=== PATIENT | male | born 1985 | race Caucasian/White ===

== ENCOUNTER 2019-03-30 09:44 | Emergency (ER) | payer MEDICAID, OTHER ==
[~2019-03-30] VITALS: Ht 195.6 cm; Wt 134.6 kg
[2019-03-30] MEDS ORDERED: ACET1TAB16 (09:53)
[2019-03-30] MEDS ORDERED: NAPR-885 (09:53)
--- NOTE | 2019-03-30 11:57 | REP ---
RIGHT UPPER QUADRANT ULTRASOUND: Real-time sonographic evaluation of the right upper quadrant performed. Gallbladder is mildly distended and contains stones and sludge. There is mild diffuse gallbladder wall thickening at 4 mm. There is no pericholecystic fluid. There is no intrahepatic or extrahepatic biliary dilatation, common bile duct measuring 4 mm. Liver demonstrates increased echotexture diffusely suggesting diffuse fibrofatty infiltration. No gross liver mass is seen. The pancreas could not be visualized due to overlying bowel gas. The right kidney demonstrates no hydronephrosis with normal size 12.1 cm in length. IMPRESSION: Moderately distended gallbladder containing stones and sludge. Mild diffuse gallbladder wall thickening. No free fluid or biliary dilatation. Electronically Signed by Clinton York MD 03/30/2019 04:35 P
[2019-03-30 12:04] LABS: BASO % 0.1 % (0.0-1.0); EOS # 0.1 10^3/uL (0.0-0.50); EOS % 1.4 % (0.0-3.0); LYMPH # 1.8 10^3/uL (1.5-4.5); LYMPH % 25.1 % (24.0-44.0); MEAN CORPUSCULAR HEMOGLOBIN 30.7 pg (27.0-33.0); MEAN CORPUSCULAR HGB CONC 34.1 g/dl (32.0-36.5); MEAN CORPUSCULAR VOLUME 90.2 fl (80.0-96.0); MONO # 0.4 10^3/uL (0.0-0.8); NEUTROPHILS # 4.7 10^3/uL (1.8-7.7); NEUTROPHILS % 67.3 % (36.0-66.0); PLATELET COUNT, AUTOMATED 299 10^3/uL (150-450); RED BLOOD COUNT 4.88 10^6/uL (4.30-6.10)
[2019-03-30] MEDS ORDERED: ONDANSETRON 4MG/2ML VIAL (J2405) IV ONE (12:15)
[2019-03-30] MEDS ORDERED: NS 1,000 ML IV ONE (12:15)
[2019-03-30] MEDS ORDERED: KETOROLAC 30 MG/ML VIAL (J1885) IV ONE (12:30)
[2019-03-30 12:36] LABS: ALBUMIN 3.8 GM/DL (3.2-5.2); ALT/SGPT 31 U/L (12-78); BILIRUBIN,DIRECT 0.1 MG/DL (0.0-0.2); BILIRUBIN,TOTAL 0.3 MG/DL (0.2-1.0); BLOOD UREA NITROGEN 11 MG/DL (7-18); CALCIUM LEVEL 9.2 MG/DL (8.5-10.1); CARBON DIOXIDE LEVEL 26 MEQ/L (21-32); CHLORIDE LEVEL 107 MEQ/L (98-107); CREATININE FOR GFR 0.94 MG/DL (0.70-1.30); GLOMERULAR FILTRATION RATE > 60.0 (>60); GLUCOSE, FASTING 90 MG/DL (70-100); LIPASE 71 U/L (73-393); POTASSIUM SERUM 4.2 MEQ/L (3.5-5.1); SODIUM LEVEL 140 MEQ/L (136-145); TOTAL PROTEIN 7.7 GM/DL (6.4-8.2)
[2019-03-30 13:01] VITALS: BP 115/58
[2019-03-30] MEDS ORDERED: NORC1TAB7 PO (13:30)
[2019-03-30] MEDS ORDERED: AUGM875T28 PO (13:30)
[2019-03-30] MEDS ORDERED: ZOFR4TAB16 PO (13:30)
[2019-03-30] MEDS ORDERED: AUGMENTIN 875 MG TAB PO ONE (13:45)
--- NOTE | 2019-04-01 08:04 | ED PDOC ---
Post-Departure Follow-Up dr perez and aniya diaz faxed formal report of us for fu Kristina Herbert MD Apr 01, 2019 08:04
== END 2019-03-30 13:52 | disposition home or self-care (01) ==
LOC: M ED 09:44
DX: K80.20 Calculus of gallbladder without cholecystitis without obstruction (principal); R11.0 Nausea; F17.200 Nicotine dependence, unspecified, uncomplicated
CPT/HCPCS: 36415; 76705; 80047; 80048; 80076; 83690; 85025; 96374; 96375; 99284; J1885; J2405

== ENCOUNTER 2019-04-03 21:33 | Inpatient (IN) | payer OTHER ==
[~2019-04-03] VITALS: Ht 195.6 cm; Wt 135.0 kg
[~2019-04-03 21:33] MED LIST: ACET1TAB16; AUGM875T28 PO; NAPR-885; NORC1TAB7 PO; ZOFR4TAB16 PO
[2019-04-03] MEDS ORDERED: ONDANSETRON 4MG/2ML VIAL (J2405) IV ONE (22:45)
[2019-04-03] MEDS ORDERED: KETOROLAC 30 MG/ML VIAL (J1885) IV ONE (22:45)
[2019-04-03] MEDS ORDERED: NS 1,000 ML IV ONE (22:45)
[2019-04-03] MEDS ORDERED: MORPHINE 2 MG/ML 1ML SYRINGE (J2270) IV ONE (23:00)
[2019-04-04 00:08] LABS: ALBUMIN 3.8 GM/DL (3.2-5.2); ALT/SGPT 619 U/L (12-78); AMYLASE 31 U/L (25-115); BILIRUBIN,DIRECT 2.4 MG/DL (0.0-0.2); BILIRUBIN,TOTAL 3.1 MG/DL (0.2-1.0); BLOOD UREA NITROGEN 9 MG/DL (7-18); CARBON DIOXIDE LEVEL 28 MEQ/L (21-32); CHLORIDE LEVEL 106 MEQ/L (98-107); CREATININE FOR GFR 0.99 MG/DL (0.70-1.30); GLOMERULAR FILTRATION RATE > 60.0 (>60); GLUCOSE, FASTING 98 MG/DL (70-100); LIPASE 98 U/L (73-393); POTASSIUM SERUM 4.1 MEQ/L (3.5-5.1); SODIUM LEVEL 140 MEQ/L (136-145); TOTAL PROTEIN 7.7 GM/DL (6.4-8.2)
[2019-04-04 00:13] LABS: BASO % 0.3 % (0.0-1.0); EOS # 0.1 10^3/uL (0.0-0.50); EOS % 1.7 % (0.0-3.0); HEMATOCRIT 43.3 % (42.0-52.0); LYMPH # 1.7 10^3/uL (1.5-4.5); LYMPH % 24.1 % (24.0-44.0); MEAN CORPUSCULAR HEMOGLOBIN 31.1 pg (27.0-33.0); MEAN CORPUSCULAR HGB CONC 34.6 g/dl (32.0-36.5); MEAN CORPUSCULAR VOLUME 89.8 fl (80.0-96.0); MONO # 0.5 10^3/uL (0.0-0.8); MONO % 7.7 % (0.0-5.0); NEUTROPHILS # 4.5 10^3/uL (1.8-7.7); NEUTROPHILS % 65.9 % (36.0-66.0); PLATELET COUNT, AUTOMATED 285 10^3/uL (150-450); RED BLOOD COUNT 4.82 10^6/uL (4.30-6.10); WHITE BLOOD COUNT 6.9 10^3/uL (4.0-10.0)
--- NOTE | 2019-04-04 03:21 | REPVR ---
EXAM: US Abdomen Limited, Right Upper Quadrant EXAM DATE/TIME: 04/04/2019 1:02 AM CLINICAL HISTORY: 33 years old, male; Abdominal pain; Acute; Additional info: Ruq abd pain, elevated lfts TECHNIQUE: Imaging protocol: Real-time ultrasound of the abdomen with image documentation. Examination was focused on the right upper quadrant. COMPARISON: GALLBLADDER US 03/30/2019 11:19 AM FINDINGS: Liver: The liver is increased in echogenicity, most commonly due to fatty infiltration, but other chronic liver diseases may have a similar appearance. Evaluation of the liver is limited. Gallbladder: Multiple echogenic shadowing gallstones are identified. Gallbladder wall thickening is again visualized, which can be associated with acute cholecystitis. Common bile duct: The common bile duct measures 7-8 mm, which is borderline dilated. Pancreas: Not visualized due to bowel gas, according to the technologist. No images available. Right kidney: The right kidney measures 13.5 x 6.1 x 6.0 cm. No hydronephrosis of the right kidney. Evaluation of the right kidney is limited. IMPRESSION: 1. The liver is increased in echogenicity, most commonly due to fatty infiltration, but other chronic liver diseases may have a similar appearance. 2. Multiple echogenic shadowing gallstones are identified. Gallbladder wall thickening is again visualized, which can be associated with acute cholecystitis. Clinical correlation is recommended. 3. The common bile duct measures 7-8 mm, which is borderline dilated. Correlation with serum bilirubin and possible MRCP are recommended. Electronically signed by: Cain Ceballos On 04/04/2019 03:21:32 AM
[2019-04-04] MEDS ORDERED: AUGM875T28 PO (03:29)
[2019-04-04] MEDS ORDERED: ONDA4TAB5 PO (03:29)
[2019-04-04] MEDS ORDERED: NORCO, ANEXSIA 5/325MG TABLET (HYDROcodone/ACETAMINOPHEN) PO PRN (03:30)
[2019-04-04] MEDS ORDERED: MORPHINE 4 MG/ML 1ML VIAL/SYRINGE (J2270) IV PRN (03:30)
[2019-04-04] MEDS: PIPERACILLIN/TAZOBACTAM SOD 3.375 GM in D5W MINI-BAG PLUS 50 ML IV SCH ×4 (04:07→22:32)
[2019-04-04] MEDS: NS 1,000 ML IV SCH ×3 (04:07→15:47)
[2019-04-04 08:11] LABS: HEMATOCRIT 39.8 % (42.0-52.0); HEMOGLOBIN 13.7 g/dl (13.5-17.5); MEAN CORPUSCULAR HEMOGLOBIN 31.6 pg (27.0-33.0); MEAN CORPUSCULAR HGB CONC 34.4 g/dl (32.0-36.5); MEAN CORPUSCULAR VOLUME 91.7 fl (80.0-96.0); PLATELET COUNT, AUTOMATED 221 10^3/uL (150-450); RED BLOOD COUNT 4.34 10^6/uL (4.30-6.10); WHITE BLOOD COUNT 5.8 10^3/uL (4.0-10.0)
[2019-04-04 08:36] LABS: ALBUMIN 3.3 GM/DL (3.2-5.2); ALT/SGPT 482 U/L (12-78); BILIRUBIN,TOTAL 1.4 MG/DL (0.2-1.0); BLOOD UREA NITROGEN 8 MG/DL (7-18); CALCIUM LEVEL 8.7 MG/DL (8.5-10.1); CARBON DIOXIDE LEVEL 24 MEQ/L (21-32); CHLORIDE LEVEL 109 MEQ/L (98-107); CREATININE FOR GFR 0.89 MG/DL (0.70-1.30); GLOMERULAR FILTRATION RATE > 60.0 (>60); GLUCOSE, FASTING 96 MG/DL (70-100); LIPASE 109 U/L (73-393); POTASSIUM SERUM 3.7 MEQ/L (3.5-5.1); SODIUM LEVEL 139 MEQ/L (136-145); TOTAL PROTEIN 6.9 GM/DL (6.4-8.2)
[2019-04-04 14:00] VITALS: BP 132/91
--- NOTE | 2019-04-04 14:41 | REP ---
MRCP: MRCP is accomplished utilizing multiple heavily T2-weighted sequences in the axial and coronal planes. MIP reconstruction images are performed. Gallbladder demonstrates multiple innumerable calculi. The vast majority of these calculi are subcentimeter in size. There is diffuse gallbladder wall thickening. I do not see surrounding free fluid. There is mild intrahepatic biliary dilatation. Common hepatic and common bile duct are mildly dilated up to 8 mm. There is a 9 mm oval calculus in the proximal common bile duct. The more distal common bile duct is not dilated. There is no evidence of pancreatic duct dilatation. Subcentimeter hyperintense nodule in the upper pole of the left kidney on T2-weighted images probably represents a subcentimeter cyst. IMPRESSION: Multiple gallstones in the gallbladder. Diffuse gallbladder wall thickening without surrounding free fluid. There is mild intrahepatic biliary dilatation and mild dilatation of the common hepatic and common bile ducts. There is an oval calculus in the proximal common bile duct measuring 9 mm in diameter. Electronically Signed by Clinton York MD 04/06/2019 08:37 A
--- NOTE | 2019-04-04 21:13 | HPE ---
DATE OF ADMISSION: 04/04/2019 CHIEF COMPLAINT: Epigastric, right upper quadrant pain times 4 hours prior to admission. BRIEF HISTORY OF PRESENT ILLNESS: The patient is a 33-year-old male who presented to the emergency room approximately 4 days prior to admission and was diagnosed with symptomatic gallstones/biliary colic. At that time, he did have some mild right upper quadrant pain and was discharged to home and ever since then he still has had some intermittent pain and discomfort but developed acute onset of abdominal pain after eating some fish and a nonfatty meal. It caused pain starting from the epigastric area all across the upper abdomen and the right upper quadrant, presented to the emergency room with this severe pain and discomfort and underwent evaluation with laboratory function tests revealing a normal white count, however an elevated bilirubin of 3.1, AST of 373, ALT of 619, alkaline phosphatase of 326. Lipase was normal. The patient has been complaining of some bilirubinuria without acholic stools. PAST MEDICAL HISTORY: Significant for questionable silent heart attack within the last year, is seen by cardiology. History of gallstones. MEDICATIONS: Since last visit to the emergency room, have been Zofran and Augmentin. The patient has not had previous surgical history and no other ongoing medications. PHYSICAL EXAM: The patient is an obese white male who looks stated age. HEENT is unremarkable. Neck: Supple without adenopathy. Lungs: Clear to auscultation without crackles, wheezes or rhonchi. Heart is regular without murmur. Abdomen is soft. At this time, about 4 hours after admission, he states his abdominal pain, tenderness has resolved, without guarding, without rebound, without peritoneal signs. No significant pain with deep inspiration. No evidence of a positive Campuzano's. Extremities: Warm, well-perfused. IMPRESSION AND PLAN: The patient has elevated liver function tests. I have ordered followup liver function tests this morning. If they are of decreased, it may be that he has passed the stone and clinically he is looking as though he has passed a stone. And the question at this time is whether to proceed with an magnetic resonance cholangiopancreatography (MRCP) or to get some followup labs over the ensuing 12-24 hours. After discussion with the patient, we will proceed with an MRCP today and our next step will be dependent on those findings, such as possible endoscopic retrograde cholangiopancreatography (ERCP) or possible progression of his diet, discharged to home and outpatient laparoscopic cholecystectomy. The patient understands our current plan and would like to proceed with operative intervention as soon as possible, and if we can perform this prior to his discharge, he would prefer that option.
[2019-04-04 22:00] VITALS: BP 132/76
[2019-04-05] VITALS (7 sets, daily range): BP systolic 118–139; BP diastolic 59–87
[2019-04-05] MEDS: PIPERACILLIN/TAZOBACTAM SOD 3.375 GM in D5W MINI-BAG PLUS 50 ML IV SCH ×4 (05:58→22:22)
[2019-04-05] MEDS: NS 1,000 ML IV SCH ×4 (05:58→22:22)
[2019-04-05] MEDS ORDERED: ISOVUE-300 61% 50ML VIAL (Q9967) As Ordered ONE ×3 (17:44→19:04)
[2019-04-05] MEDS ORDERED: dexameTHASONE 4 MG/ML 1ML VIAL (J1100) As Ordered ONE (18:16)
[2019-04-05] MEDS ORDERED: fentaNYL 100 MCG/2 ML INJECTION (J3010) As Ordered ONE ×2 (18:16→18:29)
[2019-04-05] MEDS ORDERED: ONDANSETRON 4MG/2ML VIAL (J2405) As Ordered ONE (18:16)
[2019-04-05] MEDS ORDERED: MIDAZOLAM INJ 2 MG/2 ML VIAL (J2250) As Ordered ONE (18:16)
[2019-04-05] MEDS ORDERED: LIDOCAINE 2% INJ 100 MG/5 ML SDV (FOR ANES.) As Ordered ONE (18:16)
[2019-04-05] MEDS ORDERED: PROPOFOL 200 MG/20 ML VIAL As Ordered ONE (18:16)
[2019-04-05] MEDS ORDERED: ROCURONIUM BROMIDE 50 MG/5 ML VIAL As Ordered ONE (18:16)
[2019-04-05] MEDS ORDERED: NEOSTIGMINE 10 MG/10 ML VIAL (J2710) As Ordered ONE (19:14)
[2019-04-05] MEDS ORDERED: GLYCOPYRROLATE INJ 0.2 MG/ML 2 ML VIAL As Ordered ONE (19:15)
--- NOTE | 2019-04-05 19:22 | ROOR ---
Patient Name: Ben Canada Procedure Date: 04/05/2019 5:45 PM Date of : 1985 Age: 33 Room: Main OR Gender: Male Note Status: Finalized Procedure: ERCP Indications: Abnormal MRCP, Evaluation and possible treatment of bile duct stone(s) Providers: Jasson ROSE MD Referring MD: 2. Inpatient 2. Inpatient Requesting Provider: Medicines: Monitored Anesthesia Care Complications: No immediate complications. Procedure: Pre-Anesthesia Assessment: - The heart rate, respiratory rate, oxygen saturations, blood pressure, adequacy of pulmonary ventilation, and response to care were monitored throughout the procedure. The Duodenoscope was introduced through the mouth, and advanced to the duodenum and used to inject contrast into the bile duct. The ERCP was accomplished without difficulty. The patient tolerated the procedure well. Findings: The database manager film was normal. The esophagus was successfully intubated under direct vision. The scope was advanced to a normal major papilla in the descending duodenum without detailed examination of the pharynx, larynx and associated structures, and upper GI tract. The upper GI tract was grossly normal. A straight Roadrunner wire was passed into the biliary tree. The bile duct was then deeply cannulated over the guidewire. Contrast was injected. I personally interpreted the bile duct images. Ductal flow of contrast was adequate. Image quality was adequate. Contrast extended to the entire biliary tree. Opacification of the entire biliary tree was successful. The maximum diameter of the ducts was 10 mm. The upper third of the main bile duct contained one stone, which was 10 mm in diameter. An 8 mm biliary sphincterotomy was made with a traction (standard) sphincterotome using ERBE electrocautery. There was no post-sphincterotomy bleeding. The biliary tree was swept with a 12 mm balloon starting at the bifurcation. Pus was swept from the duct. Sludge was swept from the duct. Lithotripsy with a basket-type device was successful. The biliary tree was swept with a 12 mm balloon starting at the bifurcation. Debris was swept from the duct. One stone was removed. No stones remained. Impression: - Choledocholithiasis was found. Complete removal was accomplished by biliary sphincterotomy, lithotripsy and balloon extraction. - A biliary sphincterotomy was performed. - The biliary tree was swept and pus and sludge and debris were found. - Lithotripsy was successful. - The biliary tree was swept and debris was found. Recommendation: - Refer to a surgeon at the next available appointment. - Surgical consultation for consideration of cholecystectomy at the next available appointment. Jasson Rose MD Jasson ROSE MD 04/05/2019 7:22:06 PM Electronically signed by Jasson ROSE MD Number of Addenda: 0 Note Initiated On: 04/05/2019 5:45 PM Estimated Blood Loss: Estimated blood loss: none.
[2019-04-05] MEDS ORDERED: HYDROMORPHONE HCL 0.5 MG/ 0.5 ML SYRINGE (J1170 PER 1) IV PRN (19:45)
[2019-04-05] MEDS ORDERED: LR 1,000 ML IV SCH (19:45)
[2019-04-05] MEDS ORDERED: fentaNYL 100 MCG/2 ML INJECTION (J3010) IV PRN (19:45)
[2019-04-05] MEDS ORDERED: PERCOCET 5MG/325MG TAB PO PRN (19:45)
[2019-04-05] MEDS ORDERED: ONDANSETRON 4MG/2ML VIAL (J2405) IV PRN (19:45)
--- NOTE | 2019-04-05 20:23 | REP ---
C-ARM VIEWS DURING ERCP: Multiple C-Arm views are performed during ERCP exam. Common bile duct is catheterized and contrast is injected. There is a filling defect representing a stone in the proximal common bile duct. Catheter manipulation is performed. A filling defect is not visualized on later images. Contrast is seen in the gallbladder with multiple filling defects representing gallstones. 16 minutes 43 seconds fluoroscopy time utilized. Electronically Signed by Clinton York MD 04/10/2019 01:38 P
[2019-04-06] VITALS: BP 120/58
[2019-04-06 01:00] VITALS: BP 122/53
[2019-04-06 04:00] VITALS: BP 114/63
[2019-04-06] MEDS: PIPERACILLIN/TAZOBACTAM SOD 3.375 GM in D5W MINI-BAG PLUS 50 ML IV SCH ×2 (04:15→10:07)
[2019-04-06 08:00] VITALS: BP 134/68
--- NOTE | 2019-04-06 10:34 | CR ---
DATE OF CONSULTATION: 04/04/2019 REQUESTING PHYSICIAN: Dr. Echevarria. REASON FOR CONSULTATION: Choledocholithiasis. HISTORY OF PRESENT ILLNESS: Mr. Canada is a 33-year-old male with a recent history of intermittent bouts of epigastric pain, nausea and vomiting. He was thought to have biliary colic at one of his emergency room (ER) visits in [place] last month. He was also noted to have an abnormal EKG at that time, which has been evaluated, but the results are not forthcoming at this time. Regardless, the patient was scheduled to have a cholecystectomy with a local surgeon; however over the past 2-3 days had significant increase in his abdominal pain, recurrent episodes of nausea, vomiting. His urine has turned dark and he presented to [facility] ER for further evaluation. He was found to have on ultrasound a gallbladder full of stones and a dilated common bile duct. His liver enzymes were noted to be cholestatic. He was admitted for further evaluation. His MRI this morning shows a common bile duct stone, 9 mm, obstructing his bile duct. There is moderate biliary ductal dilatation. There is a gallbladder full of stones. PAST MEDICAL HISTORY: 1. Abnormal EKG which was evaluated last month with Dr. Cano. Results are not forthcoming at this time. 2. Gallstones. SOCIAL HISTORY: Positive for tobacco. Negative for alcohol. FAMILY HISTORY: Negative for colorectal carcinoma, inflammatory bowel disease. REVIEW OF SYSTEMS: GENERAL: Negative for night sweats, fevers or chills. Positive for nausea. Positive for darkening of urine. PULMONARY: Negative for orthopnea or paroxysmal nocturnal dyspnea (PND). CARDIAC: Negative for chest pain, palpitations. Positive for an abnormal EKG. ABDOMEN: Soft, obese, mildly tender in right upper quadrant without any rebound tenderness. No masses are palpable. No ascites. EXTREMITIES: Negative for edema. RECTAL EXAMINATION: Deferred as per patient. LABORATORY WORK: Total bilirubin 3.1/1.4, direct bilirubin 2.4, AST 373/218, ALT 619/482, alkaline phosphatase 326/267. Amylase and lipase are normal at our institution. WBC 5.8, hemoglobin 13.7, hematocrit is 39, platelet count is 221. IMAGIN03/30/2019: Gallbladder ultrasound: Moderately distended gallbladder containing stones and sludge. Mild diffuse gallbladder wall thickening. No free fluid or biliary dilation. 04/04/2019: Ultrasound of gallbladder: 1. Liver is increased in echogenicity, most commonly due to fatty infiltration. 2. Multiple echogenic shattering gallstones identified in the gallbladder. The gallbladder wall is thickened, which should can be associated with acute cholecystitis. Clinical correlation is recommended. 3. Common bile duct measures 7-8 mm, which is borderline dilated. Correlation with serum bilirubin and possible magnetic resonance cholangiopancreatography (MRCP) is recommended. 04/04/2019: MRCP IMPRESSION: 1. Multiple gallstones in the gallbladder . 2. Diffuse gallbladder wall thickening with surrounding free fluid. 3. There is mild intrahepatic biliary dilatation and mild dilation of the common hepatic and common bile ducts. 4. There is an oval calculus in the proximal common bile duct measuring 9 mm in diameter. This examination is unreviewed. IMPRESSION: 1. Biliary colic/choledocholithiasis/obstructive jaundice. 2. Acute cholecystitis and cholelithiasis. 3. Reportedly abnormal EKG with recent evaluation in [place]. Testing was completed; however patient unaware of results. RECOMMENDATIONS 1. We will tentatively schedule him for endoscopic retrograde cholangiopancreatography (ERCP). 2. Continue antibiotic coverage for biliary tract. 3. I will ask cardiology to clear this patient in view of this nebulous history of "silent heart attack."
[2019-04-06 12:00] VITALS: BP 105/67
--- NOTE | 2019-04-06 12:52 | DSES ---
DATE OF ADMISSION: 04/04/2019 DATE OF DISCHARGE: 04/06/2019 CHIEF COMPLAINT: Symptomatic gallstones with common bile duct stone. ASSOCIATED DIAGNOSIS: None. MEDICATIONS: None. BRIEF HISTORY OF PRESENT ILLNESS: The patient is a 33-year-old gentleman who presented a few days ago to the emergency room with some symptomatic gallstones. He had normal liver function tests, but returned with increasing abdominal pain all across his upper abdomen. She stated that this much more problematic and painful than it was when he was seen 4 days earlier. HOSPITAL COURSE SUMMARY: The patient was admitted with the above diagnosis of symptomatic gallstones and elevated liver function tests and was found to have a common bile duct stone. He underwent ERCP and then was started on a clear liquid diet and advanced to a regular diet. During his hospitalization, his white count was normal. He has been afebrile and thus was not discharged on any antibiotic medication. He was discharged home with instructions to follow up next week in the office and for planned outpatient laparoscopic cholecystectomy. edited: 04/07/2019 0738 tkf MTDD
--- NOTE | 2019-04-06 13:01 | IPN ---
DATE: 04/05/2019 Patient overall is doing well. We did his followup labs yesterday and we did an MRI yesterday that showed a common bile duct stone. Overall, he has been having less pain and discomfort overnight but after discussing this with the uniform room attendant they plan on an endoscopic retrograde cholangiopancreatography (ERCP) today. He has been nothing by mouth after midnight. He did tolerate the clear liquids rather well. He is still has some pressure discomfort in the upper abdomen, but otherwise his abdominal exam is benign. He has been afebrile. IMPRESSION/PLAN: Patient has a common bile duct gallstone. At this point, we will and will keep him nothing by mouth, plan on the ERCP today, and then we will start him on clear liquids thereafter. We will see how he is doing after the ERCP, but depending on scheduling issues and timing we may proceed with a laparoscopic cholecystectomy here or as an outpatient.
== END 2019-04-06 13:10 | disposition home or self-care (01) ==
LOC: M ED 21:33 → M ED INP 04-04 03:26 → M MS5PR 04-04 04:55 → M PED 04-05 17:05
PROVIDERS: ADMIT Surgery; ATTEND Surgery
PROC: 0FC98ZZ Extirpation of Matter from Common Bile Duct, Via Natural or Artificial Opening Endoscopic (ICD-10-PCS; principal; 2019-04-05 16:00)
DX: K80.63 Calculus of gallbladder and bile duct with acute cholecystitis with obstruction (principal)

== ENCOUNTER 2019-05-06 13:50 | Observation (INO) | payer OTHER ==
[~2019-05-06] VITALS: Ht 195.6 cm; Wt 134.5 kg
[~2019-05-06 13:50] MED LIST changes: +ONDA4TAB5 PO
[2019-05-06 14:30] LABS: BASO % 0.1 % (0.0-1.0); EOS # 0.1 10^3/uL (0.0-0.50); EOS % 0.6 % (0.0-3.0); HEMATOCRIT 41.5 % (42.0-52.0); HEMOGLOBIN 14.8 g/dl (13.5-17.5); LYMPH # 1.1 10^3/uL (1.5-4.5); LYMPH % 13.7 % (24.0-44.0); MEAN CORPUSCULAR HEMOGLOBIN 32.6 pg (27.0-33.0); MEAN CORPUSCULAR HGB CONC 35.7 g/dl (32.0-36.5); MEAN CORPUSCULAR VOLUME 91.4 fl (80.0-96.0); MONO # 0.5 10^3/uL (0.0-0.8); MONO % 6.4 % (0.0-5.0); NEUTROPHILS # 6.2 10^3/uL (1.8-7.7); NEUTROPHILS % 78.6 % (36.0-66.0); PLATELET COUNT, AUTOMATED 231 10^3/uL (150-450); RED BLOOD COUNT 4.54 10^6/uL (4.30-6.10); WHITE BLOOD COUNT 7.9 10^3/uL (4.0-10.0)
[2019-05-06] MEDS ORDERED: NS 1,000 ML IV ONE (14:30)
[2019-05-06 14:57] LABS: ALBUMIN 3.9 GM/DL (3.2-5.2); ALT/SGPT 374 U/L (12-78); BILIRUBIN,DIRECT 4.5 MG/DL (0.0-0.2); BILIRUBIN,TOTAL 5.8 MG/DL (0.2-1.0); BLOOD UREA NITROGEN 7 MG/DL (7-18); CALCIUM LEVEL 8.7 MG/DL (8.5-10.1); CARBON DIOXIDE LEVEL 23 MEQ/L (21-32); CHLORIDE LEVEL 106 MEQ/L (98-107); CK-MB VALUE MASS < 1.0 NG/ML (<3.6); CPK CREATINE PHOSPHOKINASE 67 U/L (39-308); CREATININE FOR GFR 0.72 MG/DL (0.70-1.30); GLOMERULAR FILTRATION RATE > 60.0 (>60); GLUCOSE, FASTING 96 MG/DL (70-100); LIPASE 51 U/L (73-393); MB/CK RELATIVE INDEX 1.49 (< OR =4); POTASSIUM SERUM 3.5 MEQ/L (3.5-5.1); SODIUM LEVEL 139 MEQ/L (136-145); TOTAL PROTEIN 7.3 GM/DL (6.4-8.2); TROPONIN I < 0.02 NG/ML (< 0.10)
--- NOTE | 2019-05-06 15:09 | REP ---
Clinical: Right upper quadrant pain. Technique: Real time mustafa scale ultrasound examination using curved array transducer. Findings: Gallbladder demonstrates multiple mobile gallstones with mild wall thickening up to 6 mm and possible small amount of pericholecystic fluid along with a positive sonographic Campuzano's sign consistent with acute cholecystitis. Common bile duct is upper limits of normal at 6 mm diameter. Pancreas demonstrates subtle increased echotexture suggesting fatty infiltration without focal hepatic lesion. The pancreas is incompletely evaluated due to interposed bowel gas but visualized portions appear normal. The right kidney is normal in reniform shape without hydronephrosis and measures 11.8 x 6.4 x 5.7 cm. No ascites. Impression: Findings consistent with acute cholecystitis. Electronically Signed by Tejinder Nobles MD 05/06/2019 03:01 P
--- NOTE | 2019-05-06 15:41 | ECGEPIP ---
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
[2019-05-06] MEDS ORDERED: KETOROLAC 30 MG/ML VIAL (J1885) IV ONE (16:30)
[2019-05-06] MEDS ORDERED: PIPERACILLIN/TAZOBACTAM SOD 3.375 GM in D5W MINI-BAG PLUS 50 ML IV ONE (16:30)
[2019-05-06] MEDS ORDERED: ISOVUE-370 76% 100ML VIAL (Q9967) As Ordered ONE (16:30)
--- NOTE | 2019-05-06 17:00 | REP ---
Clinical: Acute chest pain. Technique: Axial contrast enhanced images from the thoracic inlet to the upper abdomen using 100 ml Isovue 370 intravenous contrast material with coronal and sagittal re-formations. Findings: Satisfactory enhancement of the pulmonary vasculature is achieved and no filling defects are identified to suggest pulmonary embolus. Thoracic aorta is normal caliber without aneurysm or dissection. Heart and pericardium are normal. Bilateral lung frey are well aerated and clear without acute pulmonary parenchymal consolidation or atelectasis. No nodule or mass lesion. No pleural effusion/reaction. No pneumothorax. No adenopathy. Impression: No evidence for pulmonary embolus. No acute pleuroparenchymal or mediastinal process. Electronically Signed by Tejinder Nobles MD 05/06/2019 04:51 P
[2019-05-06] MEDS ORDERED: MORPHINE 4 MG/ML 1ML VIAL/SYRINGE (J2270) IV PRN (18:15)
[2019-05-06] MEDS ORDERED: ONDANSETRON 4MG/2ML VIAL (J2405) IV PRN (18:15)
[2019-05-06] MEDS ORDERED: ACETAMINOPHEN TAB 650MG DOSE (2X325MG) PO PRN (18:15)
[2019-05-06 20:30] VITALS: BP 132/84
[2019-05-06] MEDS: NORCO, ANEXSIA 5/325MG TABLET (HYDROcodone/ACETAMINOPHEN) PO PRN (21:29)
[2019-05-06] MEDS: LR 1,000 ML IV SCH (21:30)
[2019-05-06] MEDS: PIPERACILLIN/TAZOBACTAM SOD 3.375 GM in D5W MINI-BAG PLUS 50 ML IV SCH (23:40)
[2019-05-07] VITALS: BP 140/72
[2019-05-07 04:00] VITALS: BP 131/70
[2019-05-07] MEDS: PIPERACILLIN/TAZOBACTAM SOD 3.375 GM in D5W MINI-BAG PLUS 50 ML IV SCH ×2 (05:03→11:28)
[2019-05-07] MEDS: LR 1,000 ML IV SCH (07:56)
[2019-05-07] MEDS: NORCO, ANEXSIA 5/325MG TABLET (HYDROcodone/ACETAMINOPHEN) PO PRN (07:56)
[2019-05-07 08:00] VITALS: BP 153/75
[2019-05-07 08:19] LABS: ALBUMIN 3.4 GM/DL (3.2-5.2); BILIRUBIN,TOTAL 6.7 MG/DL (0.2-1.0)
[2019-05-07 12:00] VITALS: BP 120/72
--- NOTE | 2019-05-07 14:03 | HPE ---
DATE OF ADMISSION: 05/06/2019 ADMITTING DIAGNOSIS: Choledocholithiasis with elevated liver function tests. HISTORY OF PRESENT ILLNESS: The patient is a pleasant 33-year-old man who presented to the emergency department with a 1-day history of abdominal pain. The patient has a known history of cholelithiasis and recent choledocholithiasis. He is scheduled for a laparoscopic cholecystectomy on 05/08/2019, by Dr. Ngo. He had been admitted in early April with abdominal pain and elevated liver function tests and an MRI confirmed cholelithiasis as well as choledocholithiasis. He underwent an ERCP on 04/05/2019 which confirmed choledocholithiasis and he underwent a papillotomy and a balloon sweep of the common bile duct. I do not find any followup liver function tests after the ERCP to confirm that these had normalized, but the patient reports that his pain had resolved and he was doing very well over the last month. Yesterday, he noted the onset of some mild discomfort again which worsened during the course of the evening and night. 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 The patient reports that he had noted that his urine had become darker. He underwent evaluation in the emergency department with a gallbladder ultrasound which revealed cholelithiasis with some mild gallbladder wall thickening and perhaps a small amount of pericholecystic fluid. There was some tenderness reported on pressure over the gallbladder. The patient had reported some pleuritic type chest pain with inspiration so the PA in the emergency department also ordered a CT angio of the chest which showed no evidence of pulmonary embolus or acute pulmonary or mediastinal process. His laboratory studies showed elevation of his liver function tests with a total bilirubin of 5.8 and a direct of 4.5 with elevations of AST, ALT and alkaline phosphatase as well. I was consulted and the patient is now admitted for management of his presumed recurrent choledocholithiasis. MEDICATIONS: Patient has been on no active or prescription medications. ALLERGIES: He has NO KNOWN DRUG ALLERGIES. SURGICAL HISTORY: Negative. MEDICAL HISTORY: The patient had been evaluated at another hospital where there was some question raised about a previous heart attack, but he was seen by Dr. Cano of cardiology who felt that there was no real evidence of any cardiac problem. SOCIAL HISTORY: The patient is accompanied to the hospital by his spouse. The patient is an every day smoker and he does report some alcohol intake. REVIEW OF SYSTEMS: Reveals no history of chest pain or palpitations. He denies shortness of breath, cough or wheezing. He has had no dysuria or hematuria. He has had no significant GI complaints. He did note that his urine was darker today. He is not complaining of any bone or joint issues. There is no history of deep vein thrombosis (DVT) or pulmonary embolus. PHYSICAL EXAMINATION: Reveals a pleasant, somewhat overweight man lying quietly on the ER stretcher. He is alert and oriented. Skin is warm and dry. Mucous membranes are moist. Neck is supple. Heart exam shows a regular rhythm. The lungs are clear. The abdomen is flat. There are no scars evident. He has bowel sounds present on auscultation. The abdomen is soft throughout without any significant tenderness at this time. No masses appreciated. He has palpable radial and dorsalis pedis pulses. LABORATORY STUDIES: Show a white count of 8, hemoglobin of 15, hematocrit of 42 and a platelet count of 231,000. Differential count shows 79% neutrophils, 14% lymphocytes and 6% monocytes. Chemistry profile shows normal electrolytes with a BUN 7, creatinine 0.7 and a glucose of 96. Total bilirubin is 5.8, direct of 4.5. AST is 175, ALT is 374 and the alkaline phosphatase is 236. His lipase is 51. I note that back on 04/03/2019 when he had been admitted previously his total bilirubin was 3.1. He had a urinalysis today that showed no evidence for urinary tract infection with some elevation of his bilirubin and urobilinogen. IMPRESSION: Cholelithiasis and possible recurrent choledocholithiasis. PLAN: The patient had undergone an ERCP on 04/05/2019 with removal of a common duct stone. There was no followup laboratory testing to confirm normalization of his liver function tests, but he does report that his urine had been normal color and he was not having any abdominal pain following the ERCP. He has now had fairly sudden onset of recurrence of his pain with elevations of his liver function tests again. I suspect he is passing or has passed a stone. He is fairly comfortable currently and it may be that he passed a stone and that his liver function tests will normalize and he can then proceed with his cholecystectomy on Wednesday. However, if his liver functions do not normalize, it would be necessary to consider repeating his ERCP prior to proceeding with the cholecystectomy. I will place him on observation overnight and give him some IV hydration. We will recheck his labs in the morning and see how his symptoms are at that point. If his liver function tests remain elevated and he has persistent discomfort, then a repeat MRCP will be performed to reassess for possible common bile duct stone.
--- NOTE | 2019-05-07 20:22 | IPN ---
DATE: 05/07/2019 HISTORY: Patient was placed on observation last evening after presenting with abdominal pain and elevations of his liver function tests. He is just a month out from an endoscopic retrograde cholangiopancreatography (ERCP) for common bile duct stone with elevated liver function tests (LFTs). He reports today still some mild abdominal discomfort. He has had no nausea or vomiting. Vital signs show that he had a maximum temperature (T-max) of 99.8 at midnight, but has been in the 98s today. His pulse is in the 60s to 82 and his blood pressure is good. Pulse oximetry is normal on room air. Intake and output show that he has 1000 mL of intravenous (IV) intake with 100 of urine output yesterday but 1600 so far today. PHYSICAL EXAMINATION: The patient is lying quietly on the hospital bed. He is alert and oriented. Physical exam shows the abdomen to be soft but mildly full. He does have some mild tenderness in the epigastrium and right upper quadrant area. Laboratory studies today: He had some liver function tests that showed a total bilirubin of 6.7 with a direct of 5.0. These are both elevated from yesterday afternoon. His AST is 110 with an ALT of 292 and an alkaline phosphatase of 231. These are similar or slightly lower than yesterday. IMPRESSION: Patient's liver function tests have remained elevated and he still has some mild tenderness in the right upper quadrant. I believe these findings are consistent with some bile duct obstruction secondary to choledocholithiasis. I do not believe he has true acute cholecystitis, but only some mild distension-related discomfort. PLAN: I spoke with the patient regarding his so laboratory studies and that these are consistent with persistent bile duct stones. I have advised him that we would need to put his surgery scheduled for 05/08/2019 on hold so that we can address these new common bile duct stones. I have recommended that we proceed with the magnetic resonance cholangiopancreatography (MRCP) to confirm this and then contact gastroenterology tomorrow for a repeat ERCP. The patient appears agreeable with this plan and I will order the MRCP for today.
== END 2019-05-07 15:50 | disposition left against medical advice (07) ==
LOC: M ED 14:19 → M ED INP 18:01 → M PED 20:22
PROVIDERS: ADMIT Surgery; ATTEND Surgery
DX: K80.50 Calculus of bile duct without cholangitis or cholecystitis without obstruction (principal); R94.5 Abnormal results of liver function studies; F17.210 Nicotine dependence, cigarettes, uncomplicated
CPT/HCPCS: 36415; 71275; 76705; 80047; 80048; 80076; 81001; 82550; 82553; 83690; 85025; 85379; 93005; 96361; 96365; 96366; 96375; 99284; J1885; J2543; Q9967